=== PATIENT | female | born 1930 | race Caucasian/White ===

== ENCOUNTER 2021-01-31 09:51 | Inpatient (IN) | payer OTHER ==
[~2021-01-31] VITALS: Ht 157.5 cm; Wt 46.7 kg
[2021-01-31] MEDS ORDERED: SODIUM CHLORIDE 0.9% 500 ML IVB ONE (10:00)
[2021-01-31 10:31] LABS: Basophils # (auto) 0.1 10 ^3/uL (0-0.2); Basophils % (auto) 0.7 % (0.0-2.0); Eosinophils # (auto) 0.1 10 ^3/uL (0-0.8); Monocytes # (auto) 0.5 10 ^3/uL (0-1.3); Neutrophils # (auto) 6.6 10 ^3/uL (1.6-8.6); Red Cell Distribution Width 14.1 % (11.8-14.3); White Blood Cell 8.1 10^3/uL (4.4-10.8)
[2021-01-31 10:32] LABS: Hematocrit 41.7 % (36.0-46.0); Hemoglobin 14.2 g/dL (12.2-16.2); Lymphocytes # (auto) 0.8 10 ^3/uL (0.4-5.4); Lymphocytes % (auto) 10.1 % (10.0-50.0); Mean Corpuscular Hemoglobin 33.7 pg (28.0-32.0); Mean Corpuscular Hgb Conc. 34.1 g/dL (32.0-36.0); Mean Corpuscular Volume 98.7 fL (80.0-100.0); Monocytes % (auto) 6.3 % (0.0-12.0); Neutrophils % (auto) 81.9 % (37.0-80.0); Nucleated Red Blood Cells % 0.1 %; Red Blood Cells 4.22 10^6/uL (4.0-5.20)
[2021-01-31 10:50] LABS: INR 1.03 (0.9-1.15); Partial Thromboplastin Time 24.4 sec (23.6-33.0)
[2021-01-31 10:51] LABS: Albumin 3.2 g/dL (3.4-5.0); Anion Gap 6 (5-15); Blood Urea Nitrogen 10 mg/dL (7-18); Calcium 9.1 mg/dL (8.5-10.1); Carbon Dioxide 22 mmol/L (21-32); Chloride 109 mmol/L (98-107); Glucose 160 mg/dL (74-106); Magnesium 2.3 mg/dL (1.6-2.6); Potassium 4.6 mmol/L (3.5-5.1); Sodium 137 mmol/L (136-145)
[2021-01-31 10:55] LABS: Alanine Aminotransferase 22 U/L (13-56); Alkaline Phosphatase 65 U/L (45-117); Aspartate Aminotransferase 19 U/L (15-37); Bilirubin, Total 0.7 mg/dL (0.2-1.0); GFR African American 83 mL/min; GFR Non-African American 69 mL/min; Total Protein 7.2 g/dL (6.4-8.2)
[2021-01-31] MEDS ORDERED: ONDANSETRON HCL 4 MG/2 ML VIAL IV PRN (11:45)
[2021-01-31] MEDS ORDERED: NITROGLYCERIN 0.4 MG SL TAB SL PRN (11:45)
[2021-01-31] MEDS ORDERED: HYDROcodone-ACET 5/325MG TAB PO PRN (11:45)
[2021-01-31] MEDS ORDERED: ACETAMINOPHEN 325 MG TAB PO PRN (11:45)
[2021-01-31] MEDS ORDERED: MORPHINE SULFATE INJECTION 2 MG/ML SYRG IV PRN ×2 (11:45)
[2021-01-31 12:26] LABS: Urine Bacteria FEW /hpf (None Seen); Urine Blood TRACE /uL (Negative); Urine Hyaline Cast FEW /lpf (0 - 2); Urine Specific Gravity 1.015 (1.001-1.035); Urine WBC 804 /hpf (0 - 5); Urine WBC Clumps PRESENT /hpf (None Seen)
[2021-01-31 14:00] VITALS: BP 154/95
[2021-01-31] MEDS ORDERED: DIGO0.12 PO (18:19)
[2021-01-31] MEDS ORDERED: APIX2.5T PO (18:19)
[2021-01-31] MEDS ORDERED: FURO1TAB33 PO (18:19)
[2021-01-31] MEDS ORDERED: METO-159 PO (18:19)
[2021-01-31] MEDS ORDERED: LORazepam 2MG/ML-1ML VIAL IV PRN ×2 (21:30)
[2021-01-31] MEDS ORDERED: cefTRIAXone 1GM/50ML D5W 50 ML IV ONE (21:30)
[2021-01-31 22:00] VITALS: BP 157/80
[2021-01-31] MEDS: hydrALAZINE HCL 20 MG/ML VL IV PRN (23:00)
[2021-02-01 05:00] VITALS: BP 173/97
[2021-02-01] MEDS: hydrALAZINE HCL 20 MG/ML VL IV PRN (06:06)
[2021-02-01 09:00] VITALS: BP 102/75
[2021-02-01 12:59] VITALS: BP 141/90
[2021-02-01] MEDS: ENOXAPARIN SOD 40 MG/0.4 ML SYRINGE SC SCH (13:53)
[2021-02-01 17:00] VITALS: BP 155/91
[2021-02-01 21:46] VITALS: BP 152/96
[2021-02-01] MEDS: cefTRIAXone 1GM/50ML D5W 50 ML IV SCH (22:23)
[2021-02-02 05:00] VITALS: BP 142/96
[2021-02-02 06:12] LABS: Basophils # (auto) 0.1 10 ^3/uL (0-0.2); Eosinophils # (auto) 0.1 10 ^3/uL (0-0.8); Eosinophils % (auto) 1.1 % (0.0-7.0); Lymphocytes # (auto) 0.9 10 ^3/uL (0.4-5.4); Monocytes # (auto) 0.9 10 ^3/uL (0-1.3); Nucleated Red Blood Cells % 0.2 %; White Blood Cell 6.9 10^3/uL (4.4-10.8)
[2021-02-02 06:15] LABS: Basophils % (auto) 0.9 % (0.0-2.0); Hematocrit 40.9 % (36.0-46.0); Hemoglobin 14.2 g/dL (12.2-16.2); Lymphocytes % (auto) 12.4 % (10.0-50.0); Mean Corpuscular Hemoglobin 33.8 pg (28.0-32.0); Mean Corpuscular Hgb Conc. 34.7 g/dL (32.0-36.0); Mean Corpuscular Volume 97.6 fL (80.0-100.0); Monocytes % (auto) 12.8 % (0.0-12.0); Neutrophils % (auto) 72.8 % (37.0-80.0); Potassium 3.3 mmol/L (3.5-5.1); Red Blood Cells 4.19 10^6/uL (4.0-5.20); Red Cell Distribution Width 13.9 % (11.8-14.3)
[2021-02-02 06:23] LABS: Calcium 8.6 mg/dL (8.5-10.1)
[2021-02-02 08:42] VITALS: BP 139/88
[2021-02-02] MEDS: ENOXAPARIN SOD 40 MG/0.4 ML SYRINGE SC SCH (10:04)
[2021-02-02] MEDS ORDERED: POTASSIUM CHL 20 Meq TABLET PO ONE (11:00)
[2021-02-02] MEDS: APIXABAN 2.5 MG TAB PO SCH (11:29)
[2021-02-02 12:55] VITALS: BP 102/62
[2021-02-02 17:00] VITALS: BP 122/81
[2021-02-02 21:30] VITALS: BP 123/85
[2021-02-02] MEDS: cefTRIAXone 1GM/50ML D5W 50 ML IV SCH (21:45)
[2021-02-03 05:00] VITALS: BP_SYST 101; BP_SYST 125; BP_DIAS 64; BP_DIAS 81
[2021-02-03 05:51] LABS: Basophils # (auto) 0.1 10 ^3/uL (0-0.2); Eosinophils # (auto) 0.1 10 ^3/uL (0-0.8); Neutrophils # (auto) 4.7 10 ^3/uL (1.6-8.6); Nucleated Red Blood Cells % 0.1 %
[2021-02-03 05:54] LABS: Eosinophils % (auto) 1.7 % (0.0-7.0); Hematocrit 39.6 % (36.0-46.0); Lymphocytes # (auto) 0.8 10 ^3/uL (0.4-5.4); Lymphocytes % (auto) 13.2 % (10.0-50.0); Mean Corpuscular Hemoglobin 34.7 pg (28.0-32.0); Mean Corpuscular Hgb Conc. 35.3 g/dL (32.0-36.0); Mean Corpuscular Volume 98.3 fL (80.0-100.0); Monocytes # (auto) 0.7 10 ^3/uL (0-1.3); Monocytes % (auto) 11.3 % (0.0-12.0); Neutrophils % (auto) 72.8 % (37.0-80.0); Red Blood Cells 4.02 10^6/uL (4.0-5.20); Red Cell Distribution Width 13.6 % (11.8-14.3); White Blood Cell 6.4 10^3/uL (4.4-10.8)
[2021-02-03 06:34] LABS: Potassium 4.2 mmol/L (3.5-5.1)
[2021-02-03 06:40] LABS: Calcium 8.8 mg/dL (8.5-10.1)
[2021-02-03 08:00] VITALS: BP 133/79
[2021-02-03] MEDS: APIXABAN 2.5 MG TAB PO SCH (09:37)
[2021-02-03] MEDS: METOPROLOL TARTRATE 50 MG TAB PO SCH (09:38)
[2021-02-03] MEDS: FUROSEMIDE 20 MG TAB PO SCH (09:38)
[2021-02-03] MEDS: DIGOXIN 0.125 MG TAB PO SCH (09:38)
[2021-02-03] MEDS ORDERED: APIXABAN 2.5 MG TAB PO SCH (10:00)
[2021-02-03 12:00] VITALS: BP 118/70
[2021-02-03 16:00] VITALS: BP 131/73
[2021-02-03] MEDS: levETIRAcetam 500 MG TAB PO SCH (21:01)
[2021-02-03] MEDS: cefTRIAXone 1GM/50ML D5W 50 ML IV SCH (21:01)
[2021-02-03 22:00] VITALS: BP 108/68
[2021-02-04 05:00] VITALS: BP 132/83
[2021-02-04 09:00] VITALS: BP 91/60
[2021-02-04] MEDS: APIXABAN 2.5 MG TAB PO SCH (09:44)
[2021-02-04] MEDS: DIGOXIN 0.125 MG TAB PO SCH (09:45)
[2021-02-04] MEDS: levETIRAcetam 500 MG TAB PO SCH (09:45)
[2021-02-04] MEDS: FUROSEMIDE 20 MG TAB PO SCH (09:46)
[2021-02-04] MEDS: METOPROLOL TARTRATE 50 MG TAB PO SCH (09:46)
== END 2021-02-04 16:39 | disposition home health service (06) | DRG 101 ==
LOC: EDBD 09:51 → ER 09:51 → TELE 11:42 → TELE-WESTW 13:48
PROVIDERS: ADMIT Internal Medicine; ATTEND Internal Medicine
DX: G40.209 Localization-related (focal) (partial) symptomatic epilepsy and epileptic syndromes with complex partial seizures, not intractable, without status epilepticus (principal); I48.20 Chronic atrial fibrillation, unspecified; N39.0 Urinary tract infection, site not specified; F02.80 Dementia in other diseases classified elsewhere, unspecified severity, without behavioral disturbance, psychotic disturbance, mood disturbance, and anxiety; G30.9 Alzheimer's disease, unspecified; Z20.822 Contact with and (suspected) exposure to COVID-19; H57.02 Anisocoria; I10 Essential (primary) hypertension; Z79.01 Long term (current) use of anticoagulants; Z79.899 Other long term (current) drug therapy; Z82.49 Family history of ischemic heart disease and other diseases of the circulatory system; Z86.73 Personal history of transient ischemic attack (TIA), and cerebral infarction without residual deficits; Z85.3 Personal history of malignant neoplasm of breast; Z87.440 Personal history of urinary (tract) infections; Z90.710 Acquired absence of both cervix and uterus
CPT/HCPCS: 36415; 70450; 70551; 71045; 80048; 80053; 80162; 81001; 83735; 84484; 85025; 85610; 85730; 87086; 87426; 93005; 95819; 96361; 96365; 97110; 97116; 97530; 99291; G0378; J0696; J7060

== ENCOUNTER 2021-03-18 12:53 | Inpatient (IN) | payer OTHER ==
[~2021-03-18] VITALS: Ht 152.4 cm; Wt 47.9 kg
[~2021-03-18 12:53] MED LIST: APIX2.5T PO; DIGO0.12 PO; FURO1TAB33 PO; METO-159 PO
[2021-03-18] MEDS ORDERED: MIDAZOLAM HCL 5 MG/ML-1ML VIAL ONE (13:09)
[2021-03-18] MEDS ORDERED: MIDAZOLAM DRIP 50 mg/50mL 50 ML IV ONE (13:10)
[2021-03-18] MEDS: MIDAZOLAM DRIP 50 mg/50mL 50 ML IV SCH (13:15)
[2021-03-18] MEDS ORDERED: SODIUM CHLORIDE 0.9% 1,000 ML IV ONE (13:15)
[2021-03-18 13:30] LABS: Urine Bacteria NONE SEEN /hpf (None Seen); Urine Blood TRACE /uL (Negative); Urine Hyaline Cast MANY /lpf (0 - 2); Urine Mucus FEW (None Seen); Urine Specific Gravity 1.017 (1.001-1.035); Urine WBC 10 /hpf (0 - 5)
[2021-03-18 13:45] LABS: Basophils # (auto) 0.1 10 ^3/uL (0-0.2); Basophils % (auto) 0.8 % (0.0-2.0); Eosinophils # (auto) 0.1 10 ^3/uL (0-0.8); Hematocrit 43.8 % (36.0-46.0); Hemoglobin 14.7 g/dL (12.2-16.2); Lymphocytes # (auto) 0.6 10 ^3/uL (0.4-5.4); Lymphocytes % (auto) 7.8 % (10.0-50.0); Mean Corpuscular Hemoglobin 33.2 pg (28.0-32.0); Mean Corpuscular Hgb Conc. 33.6 g/dL (32.0-36.0); Mean Corpuscular Volume 98.9 fL (80.0-100.0); Monocytes # (auto) 0.5 10 ^3/uL (0-1.3); Monocytes % (auto) 6.7 % (0.0-12.0); Neutrophils # (auto) 6.3 10 ^3/uL (1.6-8.6); Neutrophils % (auto) 83.7 % (37.0-80.0); Nucleated Red Blood Cells % 0.1 %; Red Blood Cells 4.42 10^6/uL (4.0-5.20); Red Cell Distribution Width 13.8 % (11.8-14.3); White Blood Cell 7.6 10^3/uL (4.4-10.8)
[2021-03-18 13:51] LABS: INR 1.16 (0.9-1.15)
[2021-03-18 13:56] LABS: Albumin 3.1 g/dL (3.4-5.0); Anion Gap 10 (5-15); BUN/Creatinine Ratio 16.4; Blood Urea Nitrogen 12 mg/dL (7-18); Calcium 8.9 mg/dL (8.5-10.1); Carbon Dioxide 23 mmol/L (21-32); Chloride 109 mmol/L (98-107); GFR African American 97 mL/min; GFR Non-African American 80 mL/min; Glucose 127 mg/dL (74-106); Potassium 4.3 mmol/L (3.5-5.1); Sodium 142 mmol/L (136-145)
[2021-03-18 13:59] LABS: Lactic Acid w/Reflex 2.1 mmol/L (0.4-2.0)
[2021-03-18 14:01] LABS: Alanine Aminotransferase 26 U/L (13-56); Alkaline Phosphatase 62 U/L (45-117); Aspartate Aminotransferase 25 U/L (15-37); Bilirubin, Total 0.6 mg/dL (0.2-1.0); Total Protein 6.6 g/dL (6.4-8.2)
[2021-03-18] MEDS ORDERED: LABETALOL HCL 5 MG/ML 4ML SYRINGE IV ONE (14:30)
[2021-03-18] MEDS ORDERED: cefTRIAXone 1GM/50ML D5W 50 ML IV ONE (15:30)
[2021-03-18] MEDS ORDERED: IOHEXOL 350 MG/ML 100ML IJ ONE (15:49)
[2021-03-18] MEDS: SODIUM CHLORIDE 0.9% 1,000 ML IV SCH (16:00)
[2021-03-18] MEDS ORDERED: MORPHINE SULFATE INJECTION 2 MG/ML SYRG IV PRN (16:00)
[2021-03-18] MEDS ORDERED: VANCOMYCIN PER PHARMACY 0 MG IV SCH (16:00)
[2021-03-18] MEDS ORDERED: NITROGLYCERIN 0.4 MG SL TAB SL PRN (16:00)
[2021-03-18] MEDS ORDERED: VANCOMYCIN 1GM/250ML 250 ML IV ONE (18:00)
[2021-03-18] MEDS: hydrALAZINE HCL 20 MG/ML VL IV PRN (18:37)
[2021-03-18 18:40] VITALS: BP 114/75
[2021-03-18] MEDS: fentaNYL Drip 2500mCg/250mlNS 250 ML IV SCH (19:42)
[2021-03-18 22:06] VITALS: BP 120/70
[2021-03-19] VITALS (38 sets, daily range): BP systolic 107–162; BP diastolic 65–98
[2021-03-19] MEDS: MIDAZOLAM DRIP 50 mg/50mL 50 ML IV SCH ×4 (00:22→19:10)
[2021-03-19] MEDS: SODIUM CHLORIDE 0.9% 1,000 ML IV SCH ×3 (06:02→22:00)
[2021-03-19 06:16] LABS: Basophils # (auto) 0 10 ^3/uL (0-0.2); Basophils % (auto) 0.3 % (0.0-2.0); Eosinophils # (auto) 0 10 ^3/uL (0-0.8); Hematocrit 39.9 % (36.0-46.0); Hemoglobin 13.9 g/dL (12.2-16.2); Lymphocytes # (auto) 0.7 10 ^3/uL (0.4-5.4); Lymphocytes % (auto) 5.7 % (10.0-50.0); Mean Corpuscular Hemoglobin 33.9 pg (28.0-32.0); Mean Corpuscular Hgb Conc. 34.8 g/dL (32.0-36.0); Mean Corpuscular Volume 97.4 fL (80.0-100.0); Monocytes # (auto) 1.1 10 ^3/uL (0-1.3); Monocytes % (auto) 8.7 % (0.0-12.0); Neutrophils # (auto) 10.7 10 ^3/uL (1.6-8.6); Neutrophils % (auto) 85.3 % (37.0-80.0); Red Cell Distribution Width 13.3 % (11.8-14.3); White Blood Cell 12.6 10^3/uL (4.4-10.8)
[2021-03-19 06:20] LABS: Potassium 3.5 mmol/L (3.5-5.1)
[2021-03-19 06:29] LABS: Albumin 2.8 g/dL (3.4-5.0); BUN/Creatinine Ratio 21.4; Bilirubin, Total 0.8 mg/dL (0.2-1.0); Calcium 8.3 mg/dL (8.5-10.1); Magnesium 2.1 mg/dL (1.6-2.6); Total Protein 5.8 g/dL (6.4-8.2)
[2021-03-19] MEDS: PANTOPRAZOLE 40 MG/10 ML VIAL INJ IV SCH (09:54)
[2021-03-19] MEDS: cefTRIAXone 1GM/50ML D5W 50 ML IV SCH (09:54)
[2021-03-19] MEDS ORDERED: DONE1TAB88 PO (09:59)
[2021-03-19] MEDS ORDERED: LEVE500T3 PO (09:59)
[2021-03-19] MEDS ORDERED: DONE5TAB80 PO (09:59)
[2021-03-19] MEDS ORDERED: ENOXAPARIN SOD 40 MG/0.4 ML SYRINGE SC SCH (10:00)
[2021-03-19] MEDS: fentaNYL Drip 2500mCg/250mlNS 250 ML IV SCH (14:45)
[2021-03-19] MEDS ORDERED: VANCOMYCIN 750mg/250ml 250 ML IV ONE (15:00)
[2021-03-20] VITALS (102 sets, daily range): BP systolic 122–181; BP diastolic 67–108
[2021-03-20] MEDS: MIDAZOLAM DRIP 50 mg/50mL 50 ML IV SCH ×5 (00:46→23:00)
[2021-03-20] MEDS: SODIUM CHLORIDE 0.9% 1,000 ML IV SCH ×2 (02:00→15:53)
[2021-03-20] MEDS: cefTRIAXone 1GM/50ML D5W 50 ML IV SCH (10:00)
[2021-03-20] MEDS ORDERED: ENOXAPARIN SOD 30 MG/0.3 ML SYRINGE SC SCH (10:00)
[2021-03-20] MEDS: PANTOPRAZOLE 40 MG/10 ML VIAL INJ IV SCH (10:00)
[2021-03-20] MEDS: fentaNYL Drip 2500mCg/250mlNS 250 ML IV SCH (10:01)
[2021-03-20] MEDS: VANCOMYCIN 750mg/250ml 250 ML IV SCH (15:52)
[2021-03-20] MEDS ORDERED: DONE5TAB11 PO (16:50)
[2021-03-20] MEDS: MUPIROCIN 2% OINT 15gm or 22gm EACHNOSTRI SCH (23:00)
[2021-03-21] VITALS (78 sets, daily range): BP systolic 95–166; BP diastolic 56–102
[2021-03-21] MEDS: hydrALAZINE HCL 20 MG/ML VL IV PRN (01:09)
[2021-03-21] MEDS: SODIUM CHLORIDE 0.9% 1,000 ML IV SCH ×3 (04:00→23:58)
[2021-03-21] MEDS: MIDAZOLAM DRIP 50 mg/50mL 50 ML IV SCH (04:40)
[2021-03-21] MEDS: PANTOPRAZOLE 40 MG/10 ML VIAL INJ IV SCH (09:46)
[2021-03-21] MEDS: MUPIROCIN 2% OINT 15gm or 22gm EACHNOSTRI SCH ×2 (09:47→21:51)
[2021-03-21] MEDS: cefTRIAXone 1GM/50ML D5W 50 ML IV SCH (09:47)
[2021-03-21 10:00] LABS: Basophils # (auto) 0 10 ^3/uL (0-0.2); Basophils % (auto) 0.3 % (0.0-2.0); Eosinophils # (auto) 0.1 10 ^3/uL (0-0.8); Eosinophils % (auto) 0.9 % (0.0-7.0); Hemoglobin 13.8 g/dL (12.2-16.2); Lymphocytes # (auto) 0.5 10 ^3/uL (0.4-5.4)
[2021-03-21] MEDS ORDERED: ENOXAPARIN SOD 40 MG/0.4 ML SYRINGE SC SCH (10:00)
[2021-03-21 10:02] LABS: Lymphocytes % (auto) 4.5 % (10.0-50.0); Mean Corpuscular Hemoglobin 34.5 pg (28.0-32.0); Mean Corpuscular Hgb Conc. 35.3 g/dL (32.0-36.0); Mean Corpuscular Volume 97.8 fL (80.0-100.0); Monocytes % (auto) 9.9 % (0.0-12.0); Neutrophils # (auto) 8.8 10 ^3/uL (1.6-8.6); Neutrophils % (auto) 84.4 % (37.0-80.0); Red Blood Cells 3.99 10^6/uL (4.0-5.20); Red Cell Distribution Width 13.3 % (11.8-14.3); White Blood Cell 10.4 10^3/uL (4.4-10.8)
[2021-03-21 10:46] LABS: Albumin 2.2 g/dL (3.4-5.0); Calcium 8.2 mg/dL (8.5-10.1); Magnesium 1.8 mg/dL (1.6-2.6); Potassium 3.1 mmol/L (3.5-5.1)
[2021-03-21 10:50] LABS: BUN/Creatinine Ratio 17.1; Bilirubin, Total 0.6 mg/dL (0.2-1.0); Total Protein 5.1 g/dL (6.4-8.2)
[2021-03-21] MEDS ORDERED: POTASSIUM CHL 20MEQ/100ML 100 ML IV ONE (12:00)
[2021-03-21] MEDS: POTASSIUM CHL 20MEQ/100ML 100 ML IV SCH ×3 (15:21→17:42)
[2021-03-21] MEDS: fentaNYL Drip 2500mCg/250mlNS 250 ML IV SCH (15:22)
[2021-03-21] MEDS: VANCOMYCIN 750mg/250ml 250 ML IV SCH (16:25)
[2021-03-21] MEDS: MORPHINE SULFATE INJECTION 2 MG/ML SYRG IV PRN ×4 (16:50→23:57)
[2021-03-21] MEDS: LORazepam 2MG/ML-1ML VIAL IV PRN ×3 (17:42→22:43)
[2021-03-21] MEDS ORDERED: ACETAMINOPHEN 650 MG RECT SUPP PR PRN (21:30)
[2021-03-22] VITALS: BP 130/84
[2021-03-22] MEDS: LORazepam 2MG/ML-1ML VIAL IV PRN ×7 (01:04→22:54)
[2021-03-22] MEDS: MORPHINE SULFATE INJECTION 2 MG/ML SYRG IV PRN ×3 (02:21→23:45)
[2021-03-22 05:00] VITALS: BP 123/72
[2021-03-22 09:00] VITALS: BP 130/88
[2021-03-22] MEDS: PANTOPRAZOLE 40 MG/10 ML VIAL INJ IV SCH (09:14)
[2021-03-22] MEDS: MUPIROCIN 2% OINT 15gm or 22gm EACHNOSTRI SCH ×2 (09:14→22:09)
[2021-03-22] MEDS: ENOXAPARIN SOD 40 MG/0.4 ML SYRINGE SC SCH (09:14)
[2021-03-22] MEDS: cefTRIAXone 1GM/50ML D5W 50 ML IV SCH (11:38)
[2021-03-22] MEDS: SODIUM CHLORIDE 0.9% 1,000 ML IV SCH ×2 (11:39→20:00)
[2021-03-22 13:00] VITALS: BP 132/89
[2021-03-22] MEDS ORDERED: VANCOMYCIN 750mg/250ml 250 ML IV SCH (13:00)
[2021-03-22] MEDS: METOPROLOL TARTRATE 1MG/1ML-5ML VIAL IV PRN ×2 (14:53→19:13)
[2021-03-22 17:00] VITALS: BP 154/100
[2021-03-22] MEDS ORDERED: METOPROLOL TARTRATE 1MG/1ML-5ML VIAL IV ONE (21:45)
[2021-03-22 22:00] VITALS: BP 148/85
[2021-03-23] MEDS: LORazepam 2MG/ML-1ML VIAL IV PRN ×5 (01:08→15:59)
[2021-03-23] MEDS: METOPROLOL TARTRATE 1MG/1ML-5ML VIAL IV PRN ×3 (01:45→11:28)
[2021-03-23] MEDS: SODIUM CHLORIDE 0.9% 1,000 ML IV SCH ×2 (04:08→15:59)
[2021-03-23 05:19] VITALS: BP 151/97
[2021-03-23 09:00] VITALS: BP 137/101
[2021-03-23] MEDS: MUPIROCIN 2% OINT 15gm or 22gm EACHNOSTRI SCH (09:22)
[2021-03-23] MEDS: PANTOPRAZOLE 40 MG/10 ML VIAL INJ IV SCH (09:23)
[2021-03-23] MEDS: cefTRIAXone 1GM/50ML D5W 50 ML IV SCH (09:23)
[2021-03-23] MEDS: ENOXAPARIN SOD 40 MG/0.4 ML SYRINGE SC SCH (09:24)
[2021-03-23] MEDS: MORPHINE SULFATE INJECTION 2 MG/ML SYRG IV PRN (11:26)
[2021-03-23 12:30] VITALS: BP 146/87
[2021-03-23 14:59] VITALS: BP 140/87
== END 2021-03-23 16:10 | disposition hospice, home (50) | DRG 871 ==
LOC: EDBD 12:53 → ER 12:53 → TELE 15:48 → ICU WEST 03-19 15:49 → TELE-CENTR 03-22 00:28
PROVIDERS: ADMIT Internal Medicine; ATTEND Internal Medicine
PROC: 5A1945Z Respiratory Ventilation, 24-96 Consecutive Hours (ICD-10-PCS; principal; 2021-03-18)
PROC: 0BH17EZ Insertion of Endotracheal Airway into Trachea, Via Natural or Artificial Opening (ICD-10-PCS; 2021-03-18)
PROC: 4A143B0 Monitoring of Venous Pressure, Central, Percutaneous Approach (ICD-10-PCS; 2021-03-18)
PROC: 02HV33Z Insertion of Infusion Device into Superior Vena Cava, Percutaneous Approach (ICD-10-PCS; 2021-03-18)
DX: A41.9 Sepsis, unspecified organism (principal); G93.41 Metabolic encephalopathy; J96.01 Acute respiratory failure with hypoxia; J96.02 Acute respiratory failure with hypercapnia; J18.9 Pneumonia, unspecified organism; N39.0 Urinary tract infection, site not specified; E44.1 Mild protein-calorie malnutrition; I48.20 Chronic atrial fibrillation, unspecified; G40.201 Localization-related (focal) (partial) symptomatic epilepsy and epileptic syndromes with complex partial seizures, not intractable, with status epilepticus; Z68.1 Body mass index [BMI] 19.9 or less, adult; J98.11 Atelectasis; G30.9 Alzheimer's disease, unspecified; Z51.5 Encounter for palliative care; F02.80 Dementia in other diseases classified elsewhere, unspecified severity, without behavioral disturbance, psychotic disturbance, mood disturbance, and anxiety; I10 Essential (primary) hypertension; Z20.822 Contact with and (suspected) exposure to COVID-19; Z66 Do not resuscitate; Z79.01 Long term (current) use of anticoagulants; Z86.73 Personal history of transient ischemic attack (TIA), and cerebral infarction without residual deficits; Z79.899 Other long term (current) drug therapy; Z82.49 Family history of ischemic heart disease and other diseases of the circulatory system; Z85.3 Personal history of malignant neoplasm of breast; Z90.710 Acquired absence of both cervix and uterus; R40.2430 Glasgow coma scale score 3-8, unspecified time
CPT/HCPCS: 31500; 36415; 36556; 36600; 70450; 71045; 71275; 80053; 80202; 81001; 82565; 82805; 83605; 83735; 84484; 85025; 85610; 87040; 87070; 87077; 87081; 87186; 87205; 87426; 93005; 94002; 94003; 95819; 96365; 96367; 96375; 99291; C9113; G0378; J0696; J2250; J3480; J7060